=== PATIENT | female | born 1980 | race Caucasian/White ===

== ENCOUNTER 2017-08-27 16:30 | Emergency (ER) | payer BC ==
[2017-08-27] MEDS ORDERED: NS 1,000 ML IV ONE ×2 (16:59→18:19)
[2017-08-27 17:10] LABS: % IMMATURE GRANULYOCYTES 0.5 % (0.0-1.1); ABSOLUTE IMMATURE GRANULOCYTES 0.04 10^3/uL (0.00-0.10); ADD DIFF? NO; ADD MORPH? NO; ADD SCAN? NO; ATYPICAL LYMPHOCYTE FLAG 0 (0-99); FRAGMENT RBC FLAG 0 (0-99); HEMOGLOBIN 13.9 g/dL (12.6-16.3); LEFT SHIFT FLG 0 (0-99); LIPEMIA HEMOLYSIS FLAG 80 (0-99); MEAN CELL HEMOGLOBIN 32.5 pg (27.9-34.1); MEAN CELL HEMOGLOBIN CONCENTR. 33.1 g/dL (32.4-36.7); MEAN CELL VOLUME 98.1 fL (81.5-99.8); MEAN PLATELET VOLUME 10.8 fL (8.7-11.7); PLATELET CLUMPS FLAG 0 (0-99); PLATELET COUNT 264 10^3/uL (150-400); RED BLOOD CELL COUNT 4.28 10^6/uL (4.18-5.33)
--- NOTE | 2017-08-27 17:13 | CPEKG ---
Heart Rate: 70 RR Interval: 857 P-R Interval: 115 QRSD Interval: 122 QT Interval: 412 QTC Interval: 445 P [place]: -7 QRS [place]: 76 T Wave [place]: 18 EKG Severity - ABNORMAL ECG - EKG Impression: SINUS RHYTHM EKG Impression: Incomplete right bundle-branch block Electronically Signed By: Steven Reyes 28-Aug-2017 09:43:21
[2017-08-27 17:19] LABS: INR 0.96 (0.83-1.16); PROTIME(PATIENT) 12.7 SEC (12.0-15.0)
[2017-08-27 17:20] LABS: ANION GAP 10 mEq/L (8-16); CARBON DIOXIDE 24 mEq/l (22-31); CHLORIDE 105 mEq/L (97-110); CREATININE 0.8 mg/dL (0.6-1.0); GLOMERULAR FILTRATION RATE > 60; GLUCOSE 101 mg/dL (70-100); MAGNESIUM 1.9 mg/dL (1.6-2.3); POTASSIUM 4.2 mEq/L (3.5-5.2); SODIUM 139 mEq/L (134-144)
--- NOTE | 2017-08-27 17:25 | EDPHY ---
H & P Stated Complaint: anxiety Source: Patient Exam Limitations: No limitations - Personal History Current Tetanus Diphtheria and Acellular Pertussis (TDAP): Yes - Medical/Surgical History Hx Asthma: No Hx Chronic Respiratory Disease: No Hx Diabetes: No Hx Cardiac Disease: No Hx Renal Disease: No Hx Cirrhosis: No Hx Alcoholism: No Hx HIV/AIDS: No Hx Splenectomy or Spleen Trauma: No Other PMH: anxiety - Social History Smoking Status: Never smoked Time Seen by Provider: 08/27/17 17:24 HPI/ROS: HPI: This is a 37-year-old female presents with Chief Complaint: Dizziness Location: Head Quality: Dizziness Duration: Started this morning Signs and Symptoms: no fever, no chills, no headache, + nasal pressure and congestion, no chest pain, no shortness of breath, no weakness, no tingling, no radiation Timing: Sudden, constant Severity: [id number]-[id number] Context: Patient presents with waking up this morning feeling dizzy and in fact describes that the room was spinning accompanied by nausea, no vomiting. Symptoms worsen when changing position from lying to sitting or standing too quickly. She is originally from [place] and has been in [place] for 1 week. 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 She reports that she drink alcohol last night and consumed marijuana. She also has noticed some nasal congestion sinus pressure since she has has arrived in [place]. No prior history of vertigo. Denies headache/neck stiffness. Mother has chronic lung disease described as alpha 1 antitrypsin positive; patient relates that she was tested when she was younger and noted to just be a carrier. Denies any nausea vomiting diarrhea. Modifying Factors: Has not tried anything for the symptoms Comment: ROS: see HPI Constitutional: No fever, no chills, no weight loss Eyes: No blurred vision Respiratory: No shortness of breath, no cough Cardiovascular: No chest pain Gastrointestinal: No nausea, no vomiting, no diarrhea Genitourinary: No dysuria Extremities: No myalgias Neurologic: No weakness, no numbness Skin: No rashes Hematologic: No bruising, no bleeding MEDICAL/SURGICAL/SOCIAL HISTORY: Medical history: Anxiety Surgical history: Denies Social history: , see HPI CONSTITUTIONAL: Pleasant adult white female, awake and alert, no obvious distress HEENT: Atraumatic and normocephalic, PERRL, EOMI. Tympanic membranes mild bilateral effusion. Nares patent; no mucosal edema. Oropharynx clear, no exudate and moist pink mucosa. Airway patent. No lymphadenopathy. NECK: supple, no carotid bruits, No meningismus. Cardiovascular: Normal S1/S2, regular rate, regular rhythm, without murmur rub or gallop. PULMONARY/CHEST: Symmetrical and nontender. Clear to auscultation bilaterally. Good air movement. No accessory muscle usage. ABDOMEN: Soft, nondistended, nontender, no rebound, no guarding, no peritoneal signs, no masses or organomegaly. No CVAT. EXTREMITIES: 2/2 pulses, no deformities, no clubbing, no cyanosis or edema. NEUROLOGICAL: no focal neuro deficits. GCS 15. Positive reproduction of dizziness with Alamo-Hallpike maneuver; mild nystagmus noticed. SKIN: Warm and dry, no erythema. no rash. Good capillary refill. (Lenora Espitia) Constitutional: Initial Vital Signs Heart Rate 74 08/27/17 16:59 Blood Pressure 127/76 H 08/27/17 16:59 O2 Delivery Mode Room Air Allergies/Adverse Reactions: No Allergies [NKDA] Allergy (Verified 08/27/17 17:11) Home Medications: Medication Instructions Recorded KLONOPIN 08/27/17 Meclizine HCl [Antivert] 25 mg PO Q6 PRN #12 tablet 08/27/17 Xanax 08/27/17 Zoloft 100mg (*) 08/27/17 Medical Decision Making - Diagnostics EKG Interpretation: 12 lead EKG: Indication: Dizziness Rhythm: Normal sinus rhythm, rate of 70 beats per minute [place]: Normal Intervals: Normal QRS: Normal ST segments: Normal INTERPRETATION: Normal EKG The 12 lead EKG was interpreted by myself. (Lenora Espitia) Imaging Results: Imaging Impressions Chest/Thorax CTA 08/27/17 00:00 Impression: 1. No evidence of pulmonary thromboembolic disease. 2. Evidence of prior granulomatous disease, with a calcified granuloma in the right lower lobe and calcified mediastinal and hilar lymph nodes. Results called and discussed with Steven Yoder M.D., on August 27, 2017 at 1955. E:amm Chest X-Ray 08/27/17 16:59 IMPRESSION: Normal chest x-ray. Head CT 08/27/17 20:13 Impression: Normal. Results called and discussed with Dr. Steven Yoder at 08/27/2017 20:45. ED Course/Re-evaluation: EKG, labs, urinalysis, orthostatics, IV fluids, oral medications ordered Orthostatics positive; given 2 L normal saline and PO Meclizine with adequate relief D-dimer mildly elevated; CTA chest ordered to evaluate for pulmonary embolism No signs of CVA/arrhythmia/sepsis/sinusitis/otitis media 1820: End of shift. Signed over to Dr. Yoder pending CTA chest results and final treatment plan. (Lenora Espitia) Differential Diagnosis: Dizziness including but not limited to peripheral and central causes of vertigo , orthostatic causes including dehydration, and blood loss. (Lenora Espitia) Other Provider: 8:15 p.m. we discussed the CT results. The patient states that her vertigo that have was positional this morning is now resolved but that she has a mild headache and feels lightheaded when she sits or stands up. I will give her a dose of Ativan and more fluids. I will also order a CT scan of her head. She has an NIH stroke score of 0 and has a normal cerebellar exam. She has very mild nystagmus to the right on exam. 8:50 p.m. the patient is feeling much better. She no longer has nystagmus. She is relieved with the CT results. She suffers from significant anxiety. I will give her a take-home pack of Ativan to help with this evening. I gave her strict return precautions if her symptoms worsen or return. She and her agree with this plan. (Steven Yoder) - Data Points Laboratory Results: Laboratory Results 08/27/17 16:45 08/27/17 16:45 08/27/17 08/27/17 08/27/17 16:45 16:45 16:45 WBC RBC Hgb Hct MCV MCH MCHC RDW Plt Count MPV Neut % (Auto) Lymph % (Auto) Murray % (Auto) Eos % (Auto) Baso % (Auto) Nucleat RBC Rel Count Absolute Neuts (auto) Absolute Lymphs (auto) Absolute Monos (auto) Absolute Eos (auto) Absolute Basos (auto) Absolute Nucleated RBC Immature Gran % Immature Gran # PT 12.7 SEC SEC (12.0-15.0) INR 0.96 (0.83-1.16) APTT 24.0 SEC SEC (23.0-38.0) D-Dimer 0.75 ug/mLFEU H ug/mLFEU (0.00-0.50) Sodium 139 mEq/L mEq/L (134-144) Potassium 4.2 mEq/L mEq/L (3.5-5.2) Chloride 105 mEq/L mEq/L (97-110) Carbon Dioxide 24 mEq/l mEq/l (22-31) Anion Gap 10 mEq/L mEq/L (8-16) BUN 18 mg/dL mg/dL (7-23) Creatinine 0.8 mg/dL mg/dL (0.6-1.0) Estimated GFR > 60 Glucose 101 mg/dL H mg/dL (70-100) Calcium 10.0 mg/dL mg/dL (8.5-10.4) Magnesium 1.9 mg/dL mg/dL (1.6-2.3) Troponin I < 0.012 ng/mL ng/mL (0.000-0.034) NT-Pro-B Natriuret Pep 135 pg/mL H pg/mL (0-125) Beta HCG, Qual NEGATIVE 08/27/17 16:45 WBC 8.30 10^3/uL 10^3/uL (3.80-9.50) RBC 4.28 10^6/uL 10^6/uL (4.18-5.33) Hgb 13.9 g/dL g/dL (12.6-16.3) Hct 42.0 % % (38.0-47.0) MCV 98.1 fL fL (81.5-99.8) MCH 32.5 pg pg (27.9-34.1) MCHC 33.1 g/dL g/dL (32.4-36.7) RDW 13.0 % % (11.5-15.2) Plt Count 264 10^3/uL 10^3/uL (150-400) MPV 10.8 fL fL (8.7-11.7) Neut % (Auto) 76.2 % H % (39.3-74.2) Lymph % (Auto) 16.1 % % (15.0-45.0) Murray % (Auto) 6.3 % % (4.5-13.0) Eos % (Auto) 0.4 % L % (0.6-7.6) Baso % (Auto) 0.5 % % (0.3-1.7) Nucleat RBC Rel Count 0.0 % % (0.0-0.2) Absolute Neuts (auto) 6.33 10^3/uL 10^3/uL (1.70-6.50) Absolute Lymphs (auto) 1.34 10^3/uL 10^3/uL (1.00-3.00) Absolute Monos (auto) 0.52 10^3/uL 10^3/uL (0.30-0.80) Absolute Eos (auto) 0.03 10^3/uL 10^3/uL (0.03-0.40) Absolute Basos (auto) 0.04 10^3/uL 10^3/uL (0.02-0.10) Absolute Nucleated RBC 0.00 10^3/uL 10^3/uL (0-0.01) Immature Gran % 0.5 % % (0.0-1.1) Immature Gran # 0.04 10^3/uL 10^3/uL (0.00-0.10) PT INR APTT D-Dimer Sodium Potassium Chloride Carbon Dioxide Anion Gap BUN Creatinine Estimated GFR Glucose Calcium Magnesium Troponin I NT-Pro-B Natriuret Pep Beta HCG, Qual Medications Given: Discontinued Medications Sodium Chloride (Ns) 1,000 mls @ 0 mls/hr IV EDNOW ONE; Wide Open PRN Reason: Protocol Stop: 08/27/17 17:00 Last Admin: 08/27/17 16:59 Dose: 1,000 mls Sodium Chloride (Ns) 1,000 mls @ 0 mls/hr IV ONCE ONE PRN Reason: Wide Open Stop: 08/27/17 18:20 Last Admin: 08/27/17 18:35 Dose: 1,000 mls Lorazepam (Ativan Injection) 1 mg IVP EDNOW ONE Stop: 08/27/17 20:13 Last Admin: 08/27/17 20:24 Dose: 1 mg Meclizine HCl (Meclizine Hcl) 25 mg PO EDNOW ONE Stop: 08/27/17 18:17 Last Admin: 08/27/17 18:38 Dose: 25 mg Departure - Departure Disposition: Home, Routine, Self-Care Clinical Impression: Benign paroxysmal positional vertigo Qualifiers: Laterality: unspecified laterality Qualified Code(s): H81.10 - Benign paroxysmal vertigo, unspecified ear Condition: Good Instructions: Vertigo (ED) Additional Instructions: Rest as much as possible. Change positions slowly. Drink plenty of fluids to prevent dehydration. Take Meclizine as needed for vertigo. Take [id number] decongestants like Sudafed for nasal congestion and antihistamines for allergies daily as needed. If symptoms persist greater than 3 days, follow up primary care provider for re- evaluation. Referrals: [facility],. [Clinic] - As per Instructions Prescriptions: Meclizine HCl [Antivert] 25 mg PO Q6 PRN #12 tablet PRN Reason: Dizziness
[2017-08-27 17:32] LABS: TROPONIN I < 0.012 ng/mL (0.000-0.034)
[2017-08-27] MEDS ORDERED: IOPAMIDOL (ISOVUE 370) 100 ML BTL IV ONE (17:38)
[2017-08-27] MEDS ORDERED: MECLIZINE HCL 25 MG TAB PO ONE (18:16)
[2017-08-27] MEDS ORDERED: LORazepam 2 MG/ML INJ IVP ONE (20:12)
[2017-08-27] MEDS ORDERED: LORAZEPAM 1 MG PREPACK#4 BTL TAKEHOME ONE (20:52)
[2017-08-27 21:16] VITALS: BP 118/75; PULSE 63; RESP 18; TEMP 98.4; O2SAT 96
== END 2017-08-27 21:17 | disposition home or self-care (01) ==
DX: H81.10 Benign paroxysmal vertigo, unspecified ear (principal); E86.9 Volume depletion, unspecified
CPT/HCPCS: 96374; J2060; Q9967

== ENCOUNTER → 2018-02-08 | Outpatient (CLI) | payer BC | LOC: FIMAGING 10:16 | PROVIDERS: ATTEND Obstetrics & Gynecology | DX: Z30.431 Encounter for routine checking of intrauterine contraceptive device (principal) ==